=== PATIENT | female | born 1970 | race Caucasian/White ===

== ENCOUNTER 2017-06-10 17:44 | Emergency (ER) | payer MEDICAID | END 2017-06-10 19:54 | disposition left against medical advice (07) | LOC: D.ER 17:44 | DX: R50.9 Fever, unspecified (principal) ==

== ENCOUNTER → 2018-09-09 12:09 | Outpatient (CLI) | payer MEDICAID | END | disposition home or self-care (01) | LOC: D.LABREF 12:09 | DX: M19.012 Primary osteoarthritis, left shoulder (principal) ==

== ENCOUNTER 2018-09-29 05:15 | Inpatient (IN) | payer MEDICAID ==
[2018-09-25 18:11] LABS: BASOPHILS 0.6 % (0-2); EOSINOPHILS 1.7 % (0-7); HEMATOCRIT 36.1 % (36.0-48.0); HEMOGLOBIN 11.9 g/dL (12-16); IMMATURE GRANULOCYTES 0.3 % (0-5); LYMPHOCYTES 27.7 % (15-50); MCH 28.9 pg (26.0-34.0); MCV 87.6 fL (80.0-100.0); MEAN PLATELET VOLUME 9.1 fL (7.4-10.4); MONOCYTES 7.5 % (2-11); NEUTROPHILS 62.2 % (40-80); PLATELET COUNT 291 10x3/uL (130-400); RBC 4.12 10x6/uL (4.00-5.40); RDW 12.9 % (11.5-14.5); WBC 8.8 10x3/uL (4.8-10.8)
[2018-09-25 18:22] LABS: APPEARANCE CLEAR (CLEAR); BILIRUBIN NEGATIVE (NEGATIVE); COLOR YELLOW (YELLOW); EPITHELIAL CELLS 0-5 /hpf (0-5); GLUCOSE NEGATIVE (NEGATIVE); KETONE NEGATIVE (NEGATIVE); NITRITE NEGATIVE (NEGATIVE); PROTEIN NEGATIVE (NEGATIVE); RED CELLS - URINE NONE SEEN /hpf (0-5); SPECIFIC GRAVITY 1.015 (1.005-1.020); UROBILINOGEN NORMAL (NORMAL); WHITE CELLS - URINE 0-5 /hpf (0-5)
[2018-09-25 18:25] LABS: APTT 28.5 SECONDS (22.8-39.4); INR 0.99 (0.85-1.17); PROTIME 12.6 SECONDS (11.6-15.0)
[2018-09-25 18:33] LABS: CALC OSMOLALITY 280 mosm/kg (275-300); CARBON DIOXIDE 31.7 mmol/L (21.0-32.0); CHLORIDE - SERUM 103 mmol/L (98-107); CREATININE - SERUM 0.7 mg/dL (0.6-1.3); GLUCOSE 91 mg/dL (74-106); POTASSIUM - SERUM 3.9 mmol/L (3.5-5.1); SODIUM 141 mmol/L (136-145); UREA NITROGEN 12 mg/dL (7-18); eGFR NON AFRICAN AMERICAN > 90 mL/min (90-120)
[2018-09-29] VITALS (16 sets, daily range): BP systolic 122–147; BP diastolic 60–84; Ht 160 cm; Wt 110.7 kg
[~2018-09-29] VITALS: Ht 160 cm; Wt 110.7 kg
--- NOTE | ~2018-09-29 | MORECARE ---
CASE MANAGEMENT DISCHARGE SUMMARY PATIENT: THOR FELIZ UNIT: [id number] ADM DATE: 09/29/18 AGE: 48 : [birth year] SEX: F ROOM/BED: D.2209 AUTHOR: MALORIE GOFF PHYSICIAN: REFERRING PHYSICIAN: STEPHANY MINA MD DATE OF SERVICE: 10/02/18 Discharge Plan Patient Name: THOR FELIZ Facility: [facility]:[place] : 1970 Planned Disposition: Home Anticipated Discharge Date: Discharge Date: Expected LOS: Initial Reviewer: [email or web address] Initial Review Date: 09/29/2018 Generated: 10/02/18 4:06 pm Comments DCP- Discharge Planning Updated by [id number]: Maria Eugenia Cooney on 10/02/18 1:[address] Patient Name: THOR FELIZ Encounter No: [id number] : 1970 Primary Insurance: MEDICAID [place] Anticipated DC Date: Planned Disposition: Home External Planned Provider: : DCP follow-up note: Patient and family in agreement with discharge plan. No changes to plan. Case management will follow and assist as needed. Maria Eugenia Cooney DCP- Discharge Planning Updated by [id number]: Maria Eugenia Cooney on 09/30/18 12:[address] Patient Name: THOR FELIZ Admission Status: Elective Accout number: [id number] Admission Date: 09-29-2018 : 1970 Admission Diagnosis: Attending: STEPHANY MINA Current LOS: 1 Anticipated DC Date: Planned Disposition: Home Primary Insurance: MEDICAID [place] Discharge Planning Comments: CM met with patient to assess discharge planning needs. Patient lives with her sister and plans to return there when she is discharged. Her daughter will be the one to drive her home. She is independent with her care. She has a cpap machine in her room. She would like home health and Sharon SIDDIQUI talked to her about ordering it when she needs PT. Sharon Marc will order it from her office when she is ready. CM will continue to follow and assist with DC planning Line Erector Apprentice: Maria Eugenia Cooney DCPIA - Discharge Planning Initial Assessment Updated by [email or web address]: Maria Eugenia Cooney on 09/30/18 1:40 pm * Is the patient Alert and Oriented? Yes * How many steps to enter\exit or inside your home? * PCP mau siddiqui * Pharmacy [facility] * Preadmission Environment Home with Family * ADLs Independent * Equipment CPAP * List name and contact numbers for known caregivers / representatives who currently or will assist patient after discharge: Rachelle mcdonald [phone] * Verbal permission to speak to the caregivers and representatives has been obtained from the patient. N/A * Community resources currently utilized None * Additional services required to return to the preadmission environment? No * Can the patient safely return to the preadmission environment? Yes * Has this patient been hospitalized within the prior 30 days at any hospital? No Last DP export: 09/30/18 12:46 Patient Name: THOR FELIZ Page [id number] at 1506 All edits/amendments must be made on the electronic document DICTATION DATE: 10/02/18 1505 LEAD SECTION SUPERVISOR: BISI 10/02/18 1505 RPT#: [id number] DC DATE: STATUS: ADM IN [facility] [address] [place] [address] END OF REPORT
--- NOTE | ~2018-09-29 | OP ---
PATIENT NAME: THOR FELIZ MEDICAL RECORD: [id number] :[birth year] LOCATION:D.MS [address] ADMISSION DATE:09/29/18 SURGEON: STEPHANY MINA MD DATE OF OPERATION: 09/29/2018 PREOPERATIVE DIAGNOSIS: Degenerative arthritis of the left shoulder. POSTOPERATIVE DIAGNOSIS: Degenerative arthritis of the left shoulder. PROCEDURE: Left total shoulder arthroplasty. SURGEON: Stephany Mina MD SAFETY CONSULTANT: GEMA Lazaro IMPLANTS USED: The Arthrex Univers total shoulder arthroplasty system with an Arthrex Univers II size 7 stem, Arthrex Univers II humeral head 50 x 19, and a medium Arthrex Univers VaultLock. SUMMARY OF PATHOLOGIC FINDINGS: Extensive osteoarthritis of the glenohumeral joint consistent with preop diagnosis with large osteophytes. OPERATIVE SUMMARY IN DETAIL: After obtaining the appropriate preoperative orthopedic surgery consent as well as anesthetic consultation, evaluation, and clearance, the patient was brought to the operating room and placed on the operating table in the supine position. After general laryngeal mask airway was administered, the patient was placed in beachchair position. All pressure points were well padded to include down leg peroneal pad as well as axillary roll. The patient was held firmly to the operating table using the vacuum pack suction system. Left upper extremity and shoulder were then prepped and draped in routine sterile fashion. Arm was held in the Trimano arm holding device. Deltopectoral incision was drawn. Having completed this, a deltopectoral incision was made and taken down while the cephalic vein was protected throughout the entire case. Clavipectoral fascia was identified. Brown retractor was utilized to retract the deltoid laterally. Having completed this, conjoined tendon was gently retracted medially. Subscapularis peel technique was utilized with identification of the biceps tendon, which was then cut and saved for later tenodesis. Shoulder was then dislocated anteriorly into the incision and the findings as above were noted. Osteophytes were taken down. Proximal humerus cut was made using the humeral cutting guide. Having completed this, serial and sequential reaming and broaching were done for a size 7 Arthrex Univers stem. The trial was put into place with the cut protection guide. Having completed this, attention was turned to the glenoid. With excellent exposure of the glenoid, the circumferential labrectomy and residual biceps tendon removal were completed. Guide pin was then put into place and then reaming was followed by final preparations of the glenoid for the VaultLock system. With dry glenoid, the VaultLock medium was then cemented into place. All excess cement was removed. After the cement was allowed to harden, attention was then returned to the proximal humerus. The size 7 was then put into place, and after the proximal aspect seated well, the inferior and superior screws were tightened. This was followed by tamping in the 50 x 19 head in the appropriate position on the Garcia taper. Having completed this, the shoulder was reduced and the appropriate translation was noted. At this point, closure was achieved by GEMA Escalona, including a transosseous repair of the subscapularis as well as tenodesis of soft tissue. Wound was then irrigated and OPERATIVE REPORT [id number] THOR FELIZ closed with #1 Vicryl, 2-0 Vicryl, and skin bhumika. Sterile dressings were applied. The patient was awakened and taken to recovery in stable condition. All final needle and sponge counts were correct. TRANSINT:[id number] Voice Confirmation ID: [id number] DOCUMENT ID: [id number] STEPHANY MINA MD at 1116 CC: [id number] DICTATION DATE: 10/02/18 0637 TRIAL PARALEGAL: 10/02/18 1523 DIS IN 10/02/18 [facility] [address] [place] [address]
--- NOTE | ~2018-09-29 | MORECARE ---
CASE MANAGEMENT DISCHARGE SUMMARY PATIENT: THOR FELIZ UNIT: [id number] ADM DATE: 09/29/18 AGE: 48 : 68 SEX: F ROOM/BED: D.2209 AUTHOR: [place],DOC PHYSICIAN: REFERRING PHYSICIAN: STEPHANY MINA MD DATE OF SERVICE: 09/30/18 Discharge Plan Patient Name: THOR FELIZ Facility: [facility]:[place] : 1970 Planned Disposition: Home Anticipated Discharge Date: Discharge Date: Expected LOS: Initial Reviewer: [email or web address] Initial Review Date: 09/29/2018 Generated: 09/30/18 2:46 pm Comments DCP- Discharge Planning Updated by [id number]: Maria Eugenia Cooney on 09/30/18 12:[address] Patient Name: THOR FELIZ Admission Status: Elective Accout number: [id number] Admission Date: 09-29-2018 : 1970 Admission Diagnosis: Attending: STEPHANY MINA Current LOS: 1 Anticipated DC Date: Planned Disposition: Home Primary Insurance: MEDICAID [place] Discharge Planning Comments: CM met with patient to assess discharge planning needs. Patient lives with her sister and plans to return there when she is discharged. Her daughter will be the one to drive her home. She is independent with her care. She has a cpap machine in her room. She would like home health and Sharon SIDDIQUI talked to her about ordering it when she needs PT. Sharon Marc will order it from her office when she is ready. CM will continue to follow and assist with DC planning Outside Plant Engineer: Maria Eugenia Cooney DCPIA - Discharge Planning Initial Assessment Updated by [email or web address]: Maria Eugenia Cooney on 09/30/18 1:40 pm * Is the patient Alert and Oriented? Yes * How many steps to enter\exit or inside your home? * PCP mau siddiqui * Pharmacy [facility] [place] * Preadmission Environment Home with Family * ADLs Independent * Equipment CPAP * List name and contact numbers for known caregivers / representatives who currently or will assist patient after discharge: Rachelle mcdonald [phone] * Verbal permission to speak to the caregivers and representatives has been obtained from the patient. N/A * Community resources currently utilized None * Additional services required to return to the preadmission environment? No * Can the patient safely return to the preadmission environment? Yes * Has this patient been hospitalized within the prior 30 days at any hospital? No Patient Name: THOR FELIZ Page 30872 at 1346 All edits/amendments must be made on the electronic document DICTATION DATE: 09/30/18 1346 OUTSIDE SALES REPRESENTATIVE: BISI 09/30/18 1346 RPT#: [id number] DC DATE: STATUS: ADM IN [facility] [address] [place] [address] END OF REPORT
--- NOTE | ~2018-09-29 | CN ---
PATIENT NAME:THOR MARTIN MEDICAL RECORD: [id number] : [birth year] LOCATION:D.MS [address]9 ADMIT DATE: 09/29/18 ACCOUNT: [id number] CONSULTING PHYSICIAN: VAZQUEZ SEQUEIRA MD REFERRING PHYSICIAN: STEPHANY MINA MD DATE OF CONSULTATION: 10/01/2018 CONSULT REQUESTING PHYSICIAN: Dr. Mina. REASON FOR CONSULTATION: Left lower lobe pneumonia and left pleural effusion. HISTORY OF PRESENT ILLNESS: Ms. Martin is a 48-year-old who underwent left shoulder on Saturday. The patient had repeat chest radiograph yesterday, which showed left lower lobe infiltrate and small left pleural effusion. She has a cough without much sputum production. REVIEW OF SYSTEMS: As in history of present illness. PAST MEDICAL HISTORY: 1. Gastroesophageal reflux disease. 2. Hypertension. PAST SURGICAL HISTORY: Status post left shoulder surgery. ALLERGIES: No known drug allergies. MEDICATIONS: [employer] is reviewed. PERSONAL AND SOCIAL HISTORY: The patient is a nonsmoker, nondrinker, but she has a secondary exposure to smoking at very young age. FAMILY HISTORY: Significant for COPD of her mother. PHYSICAL EXAMINATION: GENERAL: Now, the patient is lying comfortable, but she is not in acute distress. VITAL SIGNS: The blood pressure 127/49, pulse is 88, respiration is 18, temperature is 99, SpO2 is 94% on room air. HEENT: Conjunctivae are pink. Sclerae are not icteric. NECK: Supple, no JVD. CHEST: The chest excursion is minimal on both sides. There is no wheeze. There are crackles on the left side. HEART: Rhythm regular, normal sound, no murmur. ABDOMEN: Soft, bowel sounds present. No hepatosplenomegaly. RECTAL: Deferred. EXTREMITIES: No cyanosis, no clubbing, no pedal edema. CENTRAL NERVOUS SYSTEM: The patient is awake and alert. There are no obvious cranial nerve abnormality. The gait was not tested. CHEST RADIOGRAPH: There is infiltrate in left lower lobe. There is small left pleural effusion. OTHER LABORATORY DATA: CBC: WBC is 8.9, hemoglobin 9.3, hematocrit 28.5, the platelet count is 251. CONSULT REPORT [id number] THOR MARTIN IMPRESSION: 1. Pneumonia, left lower lobe. 2. Left pleural effusion. 3. Gastroesophageal reflux disease. 4. Status post left shoulder surgery. RECOMMENDATION: 1. Continue Rocephin. I will add Levaquin to cover for Gram-negative ousmane. 2. Follow up labs and chest radiograph. 3. Dr. Mina. thank you for involving me in the care of Mr. Martin. TRANSINT:[id number] Voice Confirmation ID: [id number] DOCUMENT ID: [id number] VAZQUEZ SEQUEIRA MD at 1339 CC: [id number] DICTATION DATE: 10/01/18 1540 SADDLE MAKER: 10/01/18 3578 ADM IN [place] [id number] [place] [id number]
[~2018-09-29 05:15] MED LIST: CYMBALTA30 MG PO; FUROSEMIDE20 MG PO; MECLIZINE HCL25 MG PO; NAPROSYN500 MG PO; PREVALITE POWD231 GM PO; PRINZIDE 20/12.1 TA1 PO; PROTONIX20 MG PO
[2018-09-29] MEDS ORDERED: LIMBITROL 5/12.1 TAB PO (06:42)
[2018-09-29] MEDS ORDERED: LIPITOR10 MG PO (06:43)
[2018-09-30] VITALS: BP 97/51
[2018-09-30 04:34] LABS: HEMATOCRIT 28.6 % (36.0-48.0); HEMOGLOBIN 9.5 g/dL (12-16); MCH 28.9 pg (26.0-34.0); MCHC 33.2 g/dL (31.0-37.0); MCV 86.9 fL (80.0-100.0); MEAN PLATELET VOLUME 8.6 fL (7.4-10.4); RBC 3.29 10x6/uL (4.00-5.40); RDW 12.8 % (11.5-14.5); WBC 9.6 10x3/uL (4.8-10.8)
[2018-09-30 06:41] VITALS: BP 104/50
[2018-09-30 08:07] VITALS: BP 148/63
[2018-09-30 12:45] VITALS: BP 142/53
[2018-09-30 16:40] VITALS: BP 121/49
[2018-09-30 20:00] VITALS: BP 128/47
[2018-10-01] VITALS (7 sets, daily range): BP systolic 113–146; BP diastolic 42–53
[2018-10-01 04:50] LABS: HEMATOCRIT 28.5 % (36.0-48.0); HEMOGLOBIN 9.3 g/dL (12-16); MCH 29.2 pg (26.0-34.0); MCHC 32.6 g/dL (31.0-37.0); MEAN PLATELET VOLUME 9.2 fL (7.4-10.4); RBC 3.19 10x6/uL (4.00-5.40); RDW 13.1 % (11.5-14.5); WBC 8.9 10x3/uL (4.8-10.8)
[2018-10-01 04:51] LABS: MCV 89.3 fL (80.0-100.0)
[2018-10-02] VITALS: BP 128/41
[2018-10-02 05:04] VITALS: BP 136/53
[2018-10-02 08:50] LABS: HEMATOCRIT 28.4 % (36.0-48.0); HEMOGLOBIN 9.3 g/dL (12-16); MCH 28.5 pg (26.0-34.0); MCHC 32.7 g/dL (31.0-37.0); MEAN PLATELET VOLUME 8.5 fL (7.4-10.4); RBC 3.26 10x6/uL (4.00-5.40); RDW 12.8 % (11.5-14.5); WBC 7.3 10x3/uL (4.8-10.8)
[2018-10-02 08:52] LABS: MCV 87.1 fL (80.0-100.0)
[2018-10-02 08:58] LABS: CALC OSMOLALITY 274 mosm/kg (275-300); CALCIUM 8.6 mg/dL (8.5-10.1); CARBON DIOXIDE 31.3 mmol/L (21.0-32.0); CHLORIDE - SERUM 101 mmol/L (98-107); CREATININE - SERUM 0.7 mg/dL (0.6-1.3); GLUCOSE 100 mg/dL (74-106); POTASSIUM - SERUM 3.7 mmol/L (3.5-5.1); SODIUM 138 mmol/L (136-145); UREA NITROGEN 10 mg/dL (7-18); eGFR NON AFRICAN AMERICAN > 90 mL/min (90-120)
[2018-10-02 09:12] VITALS: BP 136/59
[2018-10-02 12:58] VITALS: BP 137/56
[2018-10-02] MEDS ORDERED: OXYCODONE-APAP1 TAB PO (15:09)
[2018-10-02] MEDS ORDERED: LEVAQUIN750 MG PO (15:10)
[2018-10-02 15:17] VITALS: BP 134/62
== END 2018-10-02 16:45 | disposition home or self-care (01) | DRG 483 ==
LOC: D.MS 05:15 → D.SDCHOLD 05:15 → D.MS 09:49
PROVIDERS: Orthopaedic Surgery
PROC: 0RRK0JZ Replacement of Left Shoulder Joint with Synthetic Substitute, Open Approach (ICD-10-PCS; principal; 2018-09-29 07:30)
DX: M19.012 Primary osteoarthritis, left shoulder (principal); J18.9 Pneumonia, unspecified organism; J98.11 Atelectasis; J90 Pleural effusion, not elsewhere classified; I10 Essential (primary) hypertension